=== PATIENT | female | born 1965 | race Caucasian/White ===

== ENCOUNTER 2020-07-07 14:18 | Emergency (ER) | payer OTHER ==
[~2020-07-07] VITALS: Ht 170.2 cm; Wt 86.2 kg
[2020-07-07 14:38] VITALS: BP 132/66
--- NOTE | 2020-07-07 15:00 | NUR ---
PT C/O LEFT HAND PAIN FOR 2 WEEKS AND WORSENED TODAY. DENIES TRAUMA/INJURY TO LEFT HAND. NO EDEMA, ERYTHEMA, OR DEFORMITY NOTICED. FULL ROM ON LEFT HAND, PT IS ABLE TO FIST. PT DENIES ANY FEVER, CP, SOB, OR COUGH AT THIS TIME; PATIENT STATES PAIN OF 7/10 AT THIS TIME; VSS; PATIENT POSITIONED FOR COMFORT ON OSBALDO. ER MD MADE AWARE OF PT STATUS.
[2020-07-07] MEDS ORDERED: KETOROLAC 30 MG/ML VIAL IM ONE (15:10)
[2020-07-07 16:02] VITALS: BP 132/66
== END 2020-07-07 16:02 | disposition home or self-care (01) ==
LOC: MED 14:18
DX: S63.592A Other specified sprain of left wrist, initial encounter (principal); X50.9XXA Other and unspecified overexertion or strenuous movements or postures, initial encounter; Y93.89 Activity, other specified; Y92.89 Other specified places as the place of occurrence of the external cause; Y99.8 Other external cause status
CPT/HCPCS: 29125; 73130; 96372; 99283; J1885

== ENCOUNTER 2020-09-22 22:59 | Emergency (ER) | payer OTHER ==
[~2020-09-22] VITALS: Ht 170.2 cm; Wt 89.8 kg
[2020-09-22 23:07] VITALS: BP 120/74
[2020-09-22] MEDS: KETOROLAC 30 MG/ML VIAL IM ONE (23:35)
[2020-09-22] MEDS: ONDANSETRON 4 MG ODT PO ONE (23:36)
[2020-09-22 23:42] LABS: BASOPHILS # (AUTO) 0.1 K/uL (0.00-0.22); BASOPHILS % (AUTO) 0.4 % (0.0-2.0); EOSINOPHILS # (AUTO) 0.2 K/uL (0-0.4); HEMATOCRIT 39.4 % (36-48); HEMOGLOBIN 12.9 g/dL (12.0-16.0); LYMPHOCYTES # (AUTO) 1.7 K/uL (2.5-16.5); LYMPHOCYTES % (AUTO) 8.2 % (20.5-51.1); MEAN CORPUSCULAR HEMOGLOBIN 27 pg (27-31); MEAN CORPUSCULAR HGB CONC 33 g/dL (33-37); MEAN CORPUSCULAR VOLUME 82.6 fL (80-94); MONOCYTES # (AUTO) 1.3 K/uL (0.8-1.0); MONOCYTES % (AUTO) 6.2 % (1.7-9.3); NEUTROPHILS # (AUTO) 17.3 K/uL (1.8-7.7); NEUTROPHILS % (AUTO) 84.2 % (42.2-75.2); PLATELET COUNT (AUTO) 348 K/uL (140-450); RED BLOOD CELL COUNT(AUTO) 4.77 MIL/uL (4.20-5.40); RED CELL DISTRIBUTION WIDTH 15.4 % (11.6-13.7); WHITE BLOOD COUNT (AUTO) 20.6 K/uL (4.8-10.8)
[2020-09-22 23:56] LABS: APPEARANCE,URINE CLEAR (CLEAR); BILIRUBIN,URINE NEGATIVE (NEGATIVE); BLOOD, URINE TRACE-I (NEGATIVE); COLOR,URINE YELLOW (YELLOW); LEUKOCYTE ESTERASE ,URINE NEGATIVE (NEGATIVE); NITRITE, URINE NEGATIVE (NEGATIVE); UGLUCOSE NEGATIVE (NEGATIVE)
[2020-09-22 23:57] LABS: ALBUMIN 3.9 g/dL (3.4-5.0); ANION GAP 15.4 (8-16); CARBON DIOXIDE 26.5 mmol/L (21-32); CREATININE 0.8 mg/dL (0.6-1.3); POTASSIUM 3.9 mmol/L (3.5-5.1); TOTAL BILIRUBIN 0.7 mg/dL (0.0-1.0)
[2020-09-23 00:11] LABS: WBC,URINE 0-5 /HPF (0-5)
[2020-09-23] MEDS ORDERED: LIDOCAINE MPF 1% 5 ML ONE (01:29)
[2020-09-23] MEDS ORDERED: cefTRIAXone 1,000 MG VIAL ONE (01:29)
[2020-09-23 01:31] VITALS: BP 106/55
[2020-09-23] MEDS: cefTRIAXone 1,000 MG in LIDOCAINE MPF 1% 2.1 ML IM ONE (01:31)
== END 2020-09-23 01:31 | disposition home or self-care (01) ==
LOC: MED 22:59
DX: R10.9 Unspecified abdominal pain (principal); E78.5 Hyperlipidemia, unspecified; R73.03 Prediabetes; Z90.49 Acquired absence of other specified parts of digestive tract; Z98.51 Tubal ligation status
CPT/HCPCS: 36415; 74176; 80053; 81001; 83690; 84702; 85025; 96372; 99284; J0696; J1885; J2001; Q0162

== ENCOUNTER 2021-05-15 09:01 | Emergency (ER) | payer OTHER ==
[~2021-05-15] VITALS: Ht 170.2 cm; Wt 87.5 kg
[2021-05-15 09:19] VITALS: BP 129/82
[2021-05-15 10:07] LABS: APPEARANCE,URINE SL CLOUDY (CLEAR); BILIRUBIN,URINE 1+ (NEGATIVE); BLOOD, URINE TRACE-L (NEGATIVE); COLOR,URINE YELLOW (YELLOW); LEUKOCYTE ESTERASE ,URINE NEGATIVE (NEGATIVE); NITRITE, URINE NEGATIVE (NEGATIVE); PH,URINE 5.5 (5.0-9.0); UGLUCOSE NEGATIVE (NEGATIVE)
[2021-05-15 10:11] LABS: BASOPHILS # (AUTO) 0.1 K/uL (0.00-0.22); BASOPHILS % (AUTO) 0.6 % (0.0-2.0); EOSINOPHILS # (AUTO) 0.2 K/uL (0-0.4); HEMATOCRIT 39.2 % (36-48); HEMOGLOBIN 13.2 g/dL (12.0-16.0); LYMPHOCYTES # (AUTO) 1.7 K/uL (2.5-16.5); LYMPHOCYTES % (AUTO) 20.9 % (20.5-51.1); MEAN CORPUSCULAR HEMOGLOBIN 28 pg (27-31); MEAN CORPUSCULAR HGB CONC 34 g/dL (33-37); MEAN CORPUSCULAR VOLUME 84.5 fL (80-94); MONOCYTES # (AUTO) 0.3 K/uL (0.8-1.0); MONOCYTES % (AUTO) 3.7 % (1.7-9.3); NEUTROPHILS # (AUTO) 6.1 K/uL (1.8-7.7); NEUTROPHILS % (AUTO) 72.8 % (42.2-75.2); PLATELET COUNT (AUTO) 358 K/uL (140-450); RED BLOOD CELL COUNT(AUTO) 4.65 MIL/uL (4.20-5.40); WHITE BLOOD COUNT (AUTO) 8.3 K/uL (4.8-10.8)
[2021-05-15 10:25] LABS: WBC,URINE 0-5 /HPF (0-5)
[2021-05-15 10:32] LABS: ANION GAP 18.7 (8-16); CARBON DIOXIDE 24.4 mmol/L (21-32); CREATININE 0.7 mg/dL (0.6-1.3); POTASSIUM 4.1 mmol/L (3.5-5.1); TOTAL BILIRUBIN 0.8 mg/dL (0.0-1.0)
[2021-05-15 11:22] VITALS: BP 129/82
== END 2021-05-15 11:22 | disposition home or self-care (01) ==
LOC: MED 09:01
DX: R42 Dizziness and giddiness (principal); R11.0 Nausea; R51.9 Headache, unspecified; Z98.890 Other specified postprocedural states
CPT/HCPCS: 36415; 71045; 72125; 80053; 81001; 81025; 83880; 84484; 85025; 87086; 93005; 99285

== ENCOUNTER 2021-05-25 15:37 | Emergency (ER) | payer OTHER ==
[~2021-05-25] VITALS: Ht 170.2 cm; Wt 87.5 kg
[2021-05-25 15:45] VITALS: BP 119/69
[2021-05-25] MEDS ORDERED: MECL-303 PO (17:56)
[2021-05-25 18:08] VITALS: BP 116/70
== END 2021-05-25 18:08 | disposition home or self-care (01) ==
LOC: MED 15:37
DX: H92.02 Otalgia, left ear (principal)
CPT/HCPCS: 99282

== ENCOUNTER 2021-06-09 12:53 | Emergency (ER) | payer OTHER ==
[~2021-06-09] VITALS: Ht 170.2 cm; Wt 88.0 kg
[~2021-06-09 12:53] MED LIST: MECL-303 PO
[2021-06-09 13:01] VITALS: BP 126/82
--- NOTE | 2021-06-09 13:05 | NUR ---
PT TO AWAIT IN LOBBY
--- NOTE | 2021-06-09 13:41 | NUR ---
PATIENT AMBULATED TO BED 5
--- NOTE | 2021-06-09 13:43 | NUR ---
55 YEAR OLD FEMALE COMPLAINS OF DIZZINESS, LIGHTHEADEDNESS X 2-3 WEEKS. PT STATES DISCOMFORT IN EAR WAS EXAMINED BY PCP AND STATES THERE IS FLUIDS BETWEEN THE EARS BUT IS WAITING FOR REFERAL. PT WAS TOLD TO RETURN TO ED IF SYMPTOMS PERSIST. PT AOX4, BREATHING EVEN AND UNLABORED, SKIN WARM AND DRY. BED IN LOWEST POSITION, LOCKED, BED RAIL UPX1. PMH - DENIES ALLERGIES - NKA
[2021-06-09] MEDS ORDERED: PRED20TA5 PO (14:07)
[2021-06-09 14:46] VITALS: BP 126/82
--- NOTE | 2021-06-09 14:49 | NUR ---
Patient discharged with v/s stable. Written and verbal after care instructions about dizziness, eustachian tube dysfunction given and explained. Patient verbalized understanding. Ambulatory with steady gait. All questions addressed prior to discharge. Advised to follow up with PMD.
== END 2021-06-09 14:49 | disposition home or self-care (01) ==
LOC: MED 12:53
DX: H69.93 Unspecified Eustachian tube disorder, bilateral (principal); R42 Dizziness and giddiness
CPT/HCPCS: 99282

== ENCOUNTER 2021-07-06 06:35 | Emergency (ER) | payer OTHER ==
[~2021-07-06] VITALS: Ht 170.2 cm; Wt 87.1 kg
[~2021-07-06 06:35] MED LIST changes: +PRED20TA5 PO
[2021-07-06 06:37] VITALS: BP 100/66
--- NOTE | 2021-07-06 06:45 | NUR ---
PT TAKEN TO BED 8
[2021-07-06] MEDS ORDERED: diphenhydrAMINE 50 MG/ML VIAL IVP ONE (06:55)
[2021-07-06] MEDS ORDERED: KETOROLAC 15 MG/ML VIAL IVP ONE (06:55)
[2021-07-06] MEDS ORDERED: NACL 0.9% 1,000 ML IV ONE (06:55)
[2021-07-06] MEDS ORDERED: ONDANSETRON 4 MG/2 ML VIAL IVP ONE (06:55)
--- NOTE | 2021-07-06 07:22 | NUR ---
PATIENT PRESENTS TO ED WITH HEADACHE X 2 WEEKS . PT STATES SHE WAS SEEN AT FOR HEADACHE AND WAS TOLD TO COME BACK TO THE ER IF HEADACHE PERSIST. VISION IS UNAFFECTED. SKIN IS PINK/WARM/DRY; AAOX4 WITH EVEN AND STEADY GAIT; LUNGS CLEAR BL; HR EVEN AND REGULAR; PT DENIES ANY FEVER, CP, SOB, OR COUGH AT THIS TIME; PATIENT STATES PAIN OF 9/10 AT THIS TIME; VSS; PATIENT POSITIONED FOR COMFORT; HOB ELEVATED; BEDRAILS UP X2; BED DOWN. ER MD MADE AWARE OF PT STATUS.
[2021-07-06] MEDS ORDERED: [UNRECOGNIZED DRUG - CODE] PO (07:54)
--- NOTE | 2021-07-06 07:58 | NUR ---
PT STATES SHE IS BEGINNING TO FEEL BETTER, PAIN HAS DECREASED TO A 5/10
[2021-07-06 08:35] VITALS: BP 100/66
--- NOTE | 2021-07-06 08:35 | NUR ---
Patient discharged with v/s stable. Written and verbal after care instructions given and explained. Patient alert, oriented and verbalized understanding of instructions. Ambulatory with steady gait. All questions addressed prior to discharge. ID band removed. Patient advised to follow up with PMD. Rx oF PHENYLEPHRINE/ACETAMINOPHEN given. Patient educated on indication of medication including possible reaction and side effects. Opportunity to ask questions provided and answered.
== END 2021-07-06 08:35 | disposition home or self-care (01) ==
LOC: MED 06:35
DX: R51.9 Headache, unspecified (principal); J32.9 Chronic sinusitis, unspecified; E78.5 Hyperlipidemia, unspecified; Z98.890 Other specified postprocedural states
CPT/HCPCS: 96374; 96375; 99284; J1200; J1885; J2405; J7030

== ENCOUNTER 2021-08-02 04:20 | Emergency (ER) | payer OTHER ==
[~2021-08-02] VITALS: Ht 170.2 cm; Wt 87.1 kg
[~2021-08-02 04:20] MED LIST changes: +[UNRECOGNIZED DRUG - CODE] PO
[2021-08-02 04:58] VITALS: BP 120/72
--- NOTE | 2021-08-02 06:00 | NUR ---
PT SEEN AND EVALUATED BY DR. HOGAN, NO NURSING CARE PROVIDED.
[2021-08-02] MEDS ORDERED: BENZ-196 PO (06:01)
[2021-08-02] MEDS ORDERED: AMOX-1000 PO (06:01)
--- NOTE | 2021-08-02 06:06 | NUR ---
PT GIVEN DISCHARE INSTRUCTIONS AND MEDICATION INFORMATION BY DR. HOGAN. RX OF AUGMENTIN AND BENZOATATE PROVIDED.
== END 2021-08-02 06:06 | disposition home or self-care (01) ==
LOC: MED 04:20
DX: J20.9 Acute bronchitis, unspecified (principal); F17.210 Nicotine dependence, cigarettes, uncomplicated; E78.5 Hyperlipidemia, unspecified; Z79.899 Other long term (current) drug therapy
CPT/HCPCS: 99283

== ENCOUNTER 2023-02-13 07:02 | Day surgery (SDC) | payer OTHER ==
[~2023-02-13] VITALS: Ht 170.2 cm; Wt 97.5 kg
[~2023-02-13 07:02] MED LIST changes: +AMOX-1000 PO; +BENZ-196 PO
[2023-02-13] MEDS ORDERED: fentaNYL citrate 0.05 MG/ML VIAL ONE (07:48)
[2023-02-13] MEDS ORDERED: MIDAZOLAM 5 MG/5 ML VIAL ONE (07:48)
[2023-02-13] MEDS ORDERED: diphenhydrAMINE 50 MG/ML VIAL ONE (07:48)
[2023-02-13] MEDS ORDERED: fentaNYL citrate 0.05 MG/ML VIAL IVP ONE (08:30)
[2023-02-13] MEDS ORDERED: MIDAZOLAM 2 MG/2 ML VIAL IVP ONE (08:30)
== END 2023-02-13 09:38 | disposition home or self-care (01) ==
LOC: MMU 07:02 → MDS 07:02
PROVIDERS: ATTEND Internal Medicine Gastroenterology
DX: K21.00 Gastro-esophageal reflux disease with esophagitis, without bleeding (principal); K29.70 Gastritis, unspecified, without bleeding; K44.9 Diaphragmatic hernia without obstruction or gangrene; E78.00 Pure hypercholesterolemia, unspecified; M19.90 Unspecified osteoarthritis, unspecified site; Z90.49 Acquired absence of other specified parts of digestive tract; E66.9 Obesity, unspecified; Z87.891 Personal history of nicotine dependence; Z98.890 Other specified postprocedural states; Z68.33 Body mass index [BMI] 33.0-33.9, adult; Z79.899 Other long term (current) drug therapy; Z20.822 Contact with and (suspected) exposure to COVID-19
CPT/HCPCS: 43239; 87426; J2250; J3010; J1200

== ENCOUNTER 2023-03-05 12:31 | Emergency (ER) | payer OTHER ==
[~2023-03-05] VITALS: Ht 170.2 cm; Wt 99.3 kg
[2023-03-05 12:59] VITALS: BP 118/71
--- NOTE | 2023-03-05 13:03 | NUR ---
AMB BED 8
--- NOTE | 2023-03-05 13:30 | NUR ---
57 y/o F BIB self from home c/o left abdominal pain, left low back pain, nausea x 1 day. Patient reports 8/10, pressure/sharp/intermittent left abd pain radiating to left hip. Pt also states left lower back pain. Denies vomiting, diarrhea, constipation, dysuria, urinary symptoms, fever, chills, chest pain, trauma, injury, falls. Denies meds prior to arrival. Bed locked in lowest position, side rails x 1. PMH: GERD Meds: unable to recall Allergies: sulfa Sx: tubal ligation, cholecystectomy
[2023-03-05] MEDS ORDERED: KETOROLAC 30 MG/ML VIAL IVP ONE (13:45)
--- NOTE | 2023-03-05 14:08 | NUR ---
Blood sample collected, handed to CPT Samanta at ER bedside.
--- NOTE | 2023-03-05 14:10 | NUR ---
Pt to CT via W/C
[2023-03-05 14:12] LABS: APPEARANCE,URINE CLEAR (CLEAR); BILIRUBIN,URINE NEGATIVE (NEGATIVE); BLOOD, URINE 1+ (NEGATIVE); COLOR,URINE YELLOW (YELLOW); LEUKOCYTE ESTERASE ,URINE NEGATIVE (NEGATIVE); NITRITE, URINE NEGATIVE (NEGATIVE); UGLUCOSE NEGATIVE (NEGATIVE)
--- NOTE | 2023-03-05 14:20 | NUR ---
Patient returned from CT by WC
[2023-03-05 14:28] LABS: RBC,URINE 0-5 /HPF (0-5); WBC,URINE NONE SEEN /HPF (0-5)
--- NOTE | 2023-03-05 14:35 | NUR ---
Patient + relief to pain; 5/10 at this time.
[2023-03-05 14:45] LABS: BASOPHILS # (AUTO) 0.1 K/uL (0.00-0.22); BASOPHILS % (AUTO) 0.6 % (0.0-2.0); EOSINOPHILS # (AUTO) 0.2 K/uL (0-0.4); HEMATOCRIT 34.7 % (36-48); HEMOGLOBIN 11.3 g/dL (12.0-16.0); LYMPHOCYTES # (AUTO) 2.6 K/uL (2.5-16.5); LYMPHOCYTES % (AUTO) 23.6 % (20.5-51.1); MEAN CORPUSCULAR HEMOGLOBIN 27 pg (27-31); MEAN CORPUSCULAR HGB CONC 33 g/dL (33-37); MEAN CORPUSCULAR VOLUME 81.3 fL (80-94); MONOCYTES # (AUTO) 0.6 K/uL (0.8-1.0); NEUTROPHILS # (AUTO) 7.6 K/uL (1.8-7.7); NEUTROPHILS % (AUTO) 68.8 % (42.2-75.2); PLATELET COUNT (AUTO) 355 K/uL (140-450); RED BLOOD CELL COUNT(AUTO) 4.27 MIL/uL (4.20-5.40); RED CELL DISTRIBUTION WIDTH 15.6 % (11.6-13.7)
[2023-03-05 15:00] LABS: ALBUMIN 3.5 g/dL (3.4-5.0); ANION GAP 14.1 (8-16); CARBON DIOXIDE 24.7 mmol/L (21-32); CREATININE 0.7 mg/dL (0.6-1.3); POTASSIUM 3.8 mmol/L (3.5-5.1); TOTAL BILIRUBIN 0.6 mg/dL (0.0-1.0)
[2023-03-05] MEDS ORDERED: ONDA-188 PO (15:38)
[2023-03-05] MEDS ORDERED: BEN10 PO (15:38)
[2023-03-05 15:46] VITALS: BP 97/59
--- NOTE | 2023-03-05 16:00 | NUR ---
Patient discharged with v/s stable. Written and verbal after care instructions given and explained for Abdominal Pain, Adult and Flank Pain, Adult. Patient alert, oriented and verbalized understanding of instructions. Ambulatory with steady gait. All questions addressed prior to discharge. ID band removed. Patient advised to follow up with PMD. Rx of Zofran ODT, Bentyl given. Patient educated on indication of medication including possible reaction and side effects. Opportunity to ask questions provided and answered. Copies of UA, blood work, CT scan, off work note provided to patient.
== END 2023-03-05 16:00 | disposition home or self-care (01) ==
LOC: MED 12:31
DX: K31.1 Adult hypertrophic pyloric stenosis (principal); K21.9 Gastro-esophageal reflux disease without esophagitis; Z88.2 Allergy status to sulfonamides; Z90.49 Acquired absence of other specified parts of digestive tract; Z98.890 Other specified postprocedural states
CPT/HCPCS: 36415; 74176; 80053; 81001; 85025; 86886; 86900; 86901; 96374; 99285; J1885; 99284

== ENCOUNTER 2023-03-22 09:09 | Emergency (ER) | payer OTHER ==
[~2023-03-22] VITALS: Ht 170.2 cm; Wt 99.8 kg
[~2023-03-22 09:09] MED LIST changes: -AMOX-1000 PO; +BEN10 PO; -BENZ-196 PO; -MECL-303 PO; +ONDA-188 PO; -PRED20TA5 PO; -[UNRECOGNIZED DRUG - CODE] PO
[2023-03-22 09:21] VITALS: BP 127/77
--- NOTE | 2023-03-22 09:27 | NUR ---
PT AMBULATED TO BED 12 ACCOMPANIED BY FRIEND. UNABLE TO PROVIDE URINE AT THIS TIME.
--- NOTE | 2023-03-22 09:29 | NUR ---
57 yo/f presents to ED w c/o mid to L abdominal pain 10/10 tight/sharp x1 month worsening this morning,+ nausea s/p colonospy yesterday morning. pt denies v/d or rectal bleed. pmh: colonoscopy, tubal ligation, htn, high chol, acid reflux allergies: sulfas
[2023-03-22 10:09] LABS: APPEARANCE,URINE CLEAR (CLEAR); BILIRUBIN,URINE NEGATIVE (NEGATIVE); BLOOD, URINE 1+ (NEGATIVE); COLOR,URINE YELLOW (YELLOW); LEUKOCYTE ESTERASE ,URINE NEGATIVE (NEGATIVE); NITRITE, URINE NEGATIVE (NEGATIVE); PH,URINE 7.5 (5.0-9.0); UGLUCOSE NEGATIVE (NEGATIVE)
[2023-03-22 10:20] LABS: BASOPHILS % (AUTO) 0.2 % (0.0-2.0); EOSINOPHILS # (AUTO) 0.1 K/uL (0-0.4); EOSINOPHILS % (AUTO) 0.5 % (0.0-4.0); HEMATOCRIT 36.2 % (36-48); HEMOGLOBIN 11.8 g/dL (12.0-16.0); LYMPHOCYTES # (AUTO) 0.9 K/uL (2.5-16.5); LYMPHOCYTES % (AUTO) 5.6 % (20.5-51.1); MEAN CORPUSCULAR HEMOGLOBIN 26 pg (27-31); MEAN CORPUSCULAR HGB CONC 33 g/dL (33-37); MONOCYTES # (AUTO) 0.5 K/uL (0.8-1.0); MONOCYTES % (AUTO) 3.1 % (1.7-9.3); NEUTROPHILS # (AUTO) 14.7 K/uL (1.8-7.7); NEUTROPHILS % (AUTO) 90.6 % (42.2-75.2); PLATELET COUNT (AUTO) 320 K/uL (140-450); RED BLOOD CELL COUNT(AUTO) 4.47 MIL/uL (4.20-5.40); RED CELL DISTRIBUTION WIDTH 15.5 % (11.6-13.7); WHITE BLOOD COUNT (AUTO) 16.2 K/uL (4.8-10.8)
[2023-03-22] MEDS ORDERED: KETOROLAC 15 MG/ML VIAL IVP ONE (10:20)
[2023-03-22] MEDS ORDERED: ONDANSETRON 4 MG/2 ML VIAL IVP ONE (10:20)
[2023-03-22 10:22] LABS: ALBUMIN 3.8 g/dL (3.4-5.0); ANION GAP 11.3 (8-16); CARBON DIOXIDE 28.1 mmol/L (21-32); CREATININE 0.9 mg/dL (0.6-1.3); POTASSIUM 3.4 mmol/L (3.5-5.1); RBC,URINE 0-5 /HPF (0-5); TOTAL BILIRUBIN 0.9 mg/dL (0.0-1.0); WBC,URINE 0-5 /HPF (0-5)
[2023-03-22] MEDS ORDERED: AMOX-1230 PO ×2 (12:27→13:51)
[2023-03-22 12:47] VITALS: BP 106/68
--- NOTE | 2023-03-22 12:48 | NUR ---
Patient discharged with v/s stable. Written and verbal after care instructions given and explained. Patient alert, oriented and verbalized understanding of instructions. Ambulatory with steady gait. All questions addressed prior to discharge. ID band removed. Patient advised to follow up with PMD. Rx of amoxicillin-clav given. Patient educated on indication of medication including possible reaction and side effects. Opportunity to ask questions provided and answered.
== END 2023-03-22 12:47 | disposition home or self-care (01) ==
LOC: MED 09:09
DX: K57.32 Diverticulitis of large intestine without perforation or abscess without bleeding (principal); K21.9 Gastro-esophageal reflux disease without esophagitis; I10 Essential (primary) hypertension; Z90.49 Acquired absence of other specified parts of digestive tract; Z98.51 Tubal ligation status; E78.5 Hyperlipidemia, unspecified; Z79.899 Other long term (current) drug therapy; Z79.2 Long term (current) use of antibiotics; Z88.2 Allergy status to sulfonamides
CPT/HCPCS: 36415; 74177; 80053; 81001; 81025; 83690; 85025; 96374; 96375; 99285; J1885; J2405; Q9967

== ENCOUNTER 2023-05-08 05:39 | Emergency (ER) | payer OTHER ==
[~2023-05-08] VITALS: Ht 170.2 cm; Wt 92.5 kg
[~2023-05-08 05:39] MED LIST changes: +AMOX-1230 PO
[2023-05-08 05:40] VITALS: BP 140/57
--- NOTE | 2023-05-08 05:40 | NUR ---
TO BED AMBULATORY
[2023-05-08 05:48] VITALS: BP 140/57
--- NOTE | 2023-05-08 06:03 | NUR ---
Patient being evaluated by physician at bedside.
--- NOTE | 2023-05-08 06:08 | NUR ---
57 Y/O F from home presents with productive cough with flem, sore throat, headache, and bilateral flank pain. pt stated it hurts to cough. pt stated initally her ears started to hurt, pt seen her primary x2days ago. xyesterday symptoms became worse she feels weak and has chills xlast night. pt stated shes been constipated. pt is A&Ox4, skin intact, ambulatory. pmh- gall bladder surgery x5yrs nka meds-lipitor, acid reflux pills, allergy pills
[2023-05-08] MEDS ORDERED: PROM118S6 PO (06:27)
[2023-05-08] MEDS ORDERED: LORA1T1237 PO (06:27)
[2023-05-08] MEDS ORDERED: NAPR-1704 PO (06:27)
[2023-05-08] MEDS ORDERED: ACETAMINOPHEN 325 MG TAB PO ONE (06:30)
--- NOTE | 2023-05-08 06:47 | NUR ---
Patient discharged with v/s stable. Written and verbal after care instructions given and explained. Patient alert, oriented and verbalized understanding of instructions. Ambulatory with steady gait. All questions addressed prior to discharge. ID band removed. Patient advised to follow up with PMD. Rx of clariten, naproxen, and promethazine given. Opportunity to ask questions provided and answered.
== END 2023-05-08 06:47 | disposition home or self-care (01) ==
LOC: MED 05:39
DX: B34.9 Viral infection, unspecified (principal); H92.03 Otalgia, bilateral; K21.9 Gastro-esophageal reflux disease without esophagitis; I10 Essential (primary) hypertension; E78.5 Hyperlipidemia, unspecified; Z90.49 Acquired absence of other specified parts of digestive tract; Z98.890 Other specified postprocedural states; Z79.899 Other long term (current) drug therapy; Z20.822 Contact with and (suspected) exposure to COVID-19
CPT/HCPCS: 71045; 87426; 87804; 99284; Q0092

== ENCOUNTER 2023-08-29 21:28 | Emergency (ER) | payer OTHER ==
[~2023-08-29] VITALS: Ht 170.2 cm; Wt 90.7 kg
[~2023-08-29 21:28] MED LIST changes: +LORA1T1237 PO; +NAPR-1704 PO; +PROM118S6 PO
[2023-08-29 21:58] VITALS: BP 148/82; PULSE 60; RESP 16; TEMP 97.2; O2SAT 100
[2023-08-29] MEDS ORDERED: TETRACAINE HCL/PF 0.5% OPTH 4 ML BTL OP ONE (22:10)
[2023-08-29] MEDS ORDERED: FLUORESCEIN OPTH STRIP 1 MG OP ONE ×2 (22:10→23:15)
[2023-08-29 22:31] VITALS: TEMP 97.9
[2023-08-29] MEDS ORDERED: ACET-8905 PO (23:22)
[2023-08-29] MEDS ORDERED: NAPR-54 PO (23:22)
[2023-08-29] MEDS ORDERED: TOBR5SOL38 LEFT EYE (23:22)
[2023-08-29] MEDS ORDERED: KETOROLAC 30 MG/ML VIAL IM ONE (23:45)
[2023-08-29 23:57] VITALS: BP 112/58; PULSE 64; RESP 19; O2SAT 99
== END 2023-08-29 23:58 | disposition home or self-care (01) ==
LOC: MED 21:28
DX: S05.02XA Injury of conjunctiva and corneal abrasion without foreign body, left eye, initial encounter (principal); K21.9 Gastro-esophageal reflux disease without esophagitis; I10 Essential (primary) hypertension; Z79.899 Other long term (current) drug therapy; Z98.890 Other specified postprocedural states; X58.XXXA Exposure to other specified factors, initial encounter; Y93.89 Activity, other specified; Y92.89 Other specified places as the place of occurrence of the external cause; Y99.8 Other external cause status
CPT/HCPCS: 90471; 90715; 96372; 99284; J1885

== ENCOUNTER 2024-06-03 02:38 | Emergency (ER) | payer OTHER ==
[~2024-06-03] VITALS: Ht 170.2 cm; Wt 94.3 kg
[~2024-06-03 02:38] MED LIST changes: +ACET-8905 PO; +NAPR-337 PO; +TOBR5SOL38 LEFT EYE
[2024-06-03 02:47] VITALS: BP 134/50; PULSE 91; RESP 18; TEMP 98.2; O2SAT 98
[2024-06-03 02:53] VITALS: BP 134/50; PULSE 91; RESP 18; TEMP 98.2; O2SAT 98
[2024-06-03] MEDS ORDERED: IBUP-2213 PO (03:19)
[2024-06-03] MEDS: KETOROLAC 60 MG/2 ML VIAL IM ONE (03:48)
== END 2024-06-03 03:48 | disposition home or self-care (01) ==
LOC: MED 02:38
DX: S01.511A Laceration without foreign body of lip, initial encounter (principal); K21.9 Gastro-esophageal reflux disease without esophagitis; I10 Essential (primary) hypertension; Z90.49 Acquired absence of other specified parts of digestive tract; Z98.51 Tubal ligation status; Z79.1 Long term (current) use of non-steroidal anti-inflammatories (NSAID); Z79.2 Long term (current) use of antibiotics; Z79.899 Other long term (current) drug therapy; W22.8XXA Striking against or struck by other objects, initial encounter; Y93.89 Activity, other specified; Y92.89 Other specified places as the place of occurrence of the external cause; Y99.8 Other external cause status
CPT/HCPCS: 12001; 90471; 90715; 96372; 99284; J1885

== ENCOUNTER 2024-07-30 07:00 | Emergency (ER) | payer OTHER ==
[~2024-07-30] VITALS: Ht 170.2 cm; Wt 94.3 kg
[~2024-07-30 07:00] MED LIST changes: +IBUP-2213 PO
[2024-07-30 07:04] VITALS: BP 125/67; PULSE 68; RESP 18; TEMP 97.3; O2SAT 99
--- NOTE | 2024-07-30 07:12 | NUR ---
ambulated to bed 12 after triage
[2024-07-30 08:18] LABS: FLU A ANTIGEN negative (NEGATIVE); FLU B ANTIGEN negative (NEGATIVE)
[2024-07-30] MEDS: KETOROLAC 30 MG/ML VIAL IM ONE (08:29)
--- NOTE | 2024-07-30 09:00 | NUR ---
PT DENIES N/V/D; SKIN IS INTACT, PINK/WARM/DRY; AAOX4, PERRL, WITH EVEN AND STEADY GAIT; LUNGS CLEAR BL, BREATHING UNLABORED; HR EVEN AND REGULAR, BL PERIPHERAL PULSES PRESENT; BS ACTIVE X4, NO TENDERNESS TO PALPATION, NO HEPATOSPLENOMEGALLY PALPATED, RESONANT TO PERCUSSION; PT DENIES ANY FEVER, CP, SOB, AT THIS TIME; PT STATES 10/10 HEAD PAIN AT THIS TIME; VSS; PATIENT POSITIONED FOR COMFORT; HOB ELEVATED; BEDRAILS UP X2; BED DOWN. CALL LIGHT WITHIN REACH SULFA
[2024-07-30] MEDS ORDERED: NAPR-337 PO (09:39)
[2024-07-30] MEDS ORDERED: LORA1T1237 PO (09:39)
[2024-07-30] MEDS ORDERED: BENZ200C4 PO (09:39)
[2024-07-30 09:45] VITALS: RESP 18
--- NOTE | 2024-07-30 09:45 | NUR ---
Patient discharged with v/s stable. Written and verbal after care instructions given and explained. Patient verbalized understanding. Ambulatory with steady gait. All questions addressed prior to discharge. Advised to follow up with PMD.
== END 2024-07-30 09:45 | disposition home or self-care (01) ==
LOC: MED 07:00
DX: J06.9 Acute upper respiratory infection, unspecified (principal); B97.89 Other viral agents as the cause of diseases classified elsewhere; M77.11 Lateral epicondylitis, right elbow; Z20.822 Contact with and (suspected) exposure to COVID-19; K21.9 Gastro-esophageal reflux disease without esophagitis; I10 Essential (primary) hypertension; E78.5 Hyperlipidemia, unspecified; Z79.899 Other long term (current) drug therapy
CPT/HCPCS: 87426; 87804; 96372; 99283; J1885